=== PATIENT | male | born 2005 | race Caucasian/White ===

== ENCOUNTER 2025-03-29 16:13 | Inpatient (IN) ==
[2025-03-29 17:20] LABS: Hematocrit (blood only) 43.1 % (42.0-52.0); Hemoglobin 15.0 g/dL (14.0-18.0); Mean Corpuscular Hemoglobin 29.6 pg (25.0-34.0); Mean Corpuscular Volume 85.2 fL (80.0-100.0); Platelet Count 361 K/uL (130-400); RDW Standard Deviation 39.6 fL (36.4-46.3); Red Blood Count 5.06 M/uL (4.70-6.10); White Blood Count 30.65 K/ul (4.8-10.8)
[2025-03-29 17:34] LABS: Alanine Aminotransferase 15.0 U/L (7-52); Albumin Globulin Ratio 0.9 (0.9-2); Albumin Level 4.1 gm/dl (3.4-5.0); Alkaline Phosphatase 119.0 U/L (34-104); Anion Gap 12.0 (3-11); Bilirubin,Total 1.0 mg/dl (0.2-1.0); Blood Urea Nitrogen 12.0 mg/dl (6-23); Calcium 9.7 mg/dl (8.6-10.3); Carbon Dioxide 24.0 mmol/L (21-32); Chloride 95.0 mmol/L (98-107); Creatinine Clr Calc Pharmacy 92.8 ml/min; Globulin 4.7 gm/dl (2.5-4.0); Glucose 164.0 mg/dl (70-99(Fasting)); Potassium 3.9 mmol/L (3.5-5.1); Sodium 131.0 mmol/L (136-145); Total Protein 8.8 gm/dl (6.0-8.3)
[2025-03-29 17:39] LABS: Immature Granulocytes # (auto) 0.16 K/uL (0.01-0.20); Immature Granulocytes % (auto) 0.5 %
--- NOTE | 2025-03-29 17:41 | XRay Report ---
Clinical History: Cough and fever Technique: A frontal view of the chest was obtained Comparison is made to the prior examination dated 2024 Findings: There is increased left perihilar interstitial prominence and there is suspected left lower lobe infiltrate, concerning for pneumonia. The heart size is within normal limits. No pleural effusion or pneumothorax is seen. There is no definite pulmonary nodule. No fracture is noted. No foreign body is seen Impression: Suspected left lung pneumonia ACT 112: Positive. There are findings on this exam that require communication between the performing entity and the patient following Patient Test Result Information Act ([place] ACT 112) guidelines. Electronically signed by Markel Moore 03-29-2025 5:40 PM
[2025-03-29] MEDS: SODIUM CHLORIDE 0.9% 1,000 ML IV SCH ×2 (17:50→21:26)
[2025-03-29] MEDS: ACETAMINOPHEN 500 MG TAB PO STA (17:50)
[2025-03-29 17:56] LABS: Influenza A virus by PCR Negative (Neg); Influenza B virus by PCR Negative (Neg); SARS CoV2 RNA(COVID-19) Ceph NEGATIVE (Negative)
[2025-03-29] MEDS: cefTRIAXone SODIUM 2,000 MG/50 ML BAG IV STA (18:21)
[2025-03-29] MEDS: AZITHROMYCIN 250 MG TAB PO ONE (18:21)
[2025-03-29] MEDS: SODIUM CHLORIDE 0.9% 1,000 ML IV ONE (19:44)
--- NOTE | 2025-03-29 20:53 | History & Physical Report ---
Date of Service March 29, 2025 Assessment & Plan (1) Pneumonia: (2) Hyponatremia: Plan 19-year-old male no significant PMHx presenting for fever, sinus congestion, and vomiting. Evaluation significant for profound leukocytosis 30.65, CMP with electrolyte abnormalities of sodium 131, chloride 95, AG 12, and elevated alkaline phosphatase 119. Lactate initially was 2.8 then was 1.1 after receiving IVF. His COVID/flu/RSV is negative, however CXR does reveal suspected L lung pneumonia. Patient to be admitted for further management. #PNA ~ 4-5 days of URI symptoms + fatigue. Fever 104 Fahrenheit day of arrival, with coughing. No known sick contacts, but is a student at [employer]. No daily smoking, occasionally vapes. No history of asthma or respiratory conditions. 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 Imaging at admi ssion with suspected LL PNA, exam ? consistent with findings, faint adventitious breath sounds present LLL. No wheezing, vitals have stabilized from initial arrival, still with some tachycardia. Suspect labs 2/2 hemoconcentration. Will admit for further management. - CBC leukocytosis 30.65, neutrophils 26.72; BMP sodium 131, chloride 95, AG 12; lactate 2.8, 1.1 on repeat; procalcitonin 0.26; suspect labs hemoconcentration - CBC am - Blood cx pending - Sputum culture pending - COVID/flu/RSV negative - CXR suspected L lung pneumonia per read - EKG pending - O2 via NC to maintain >92%; No O2 at baseline - IS - DuoNebs felisha - Acetaminophen prn fever/pain - Ceftriaxone IV + Azithro received in ED - coverage for 24hr -- deferred further abx at time of admission, pending clinical course #Hyponatremia Likely secondary to decreased intake over the past week, also in setting of hyperglycemia. Hypovolemic clinically; asx. - Na 131, glucose 164; corrected 133 - BMP am - IVF NSS @ 100 mL/hr x 1 L Dispo: Admit, med/tele VTE Prophylaxis: SCDs This document was dictated utilizing [employer]. Please excuse any grammatical errors that may be secondary to use of this software. Admission and Anticipated Discharge Date Admission Date: 03/29/2025 History of Present Illness Chief Complaint: Flu-like symptoms Primary Care Provider: Tavares Mcgowan MD 19-year-old male no significant PMHx presenting for fever, sinus congestion, and vomiting. Patient reports that approximately 4 days [employer] he noted that he was feeling "really bad", stating that the fatigue checked and he was having upper respiratory symptoms. The following 2 days after this, he states that he was basically bedbound because of the fatigue and his symptoms, also with some vomiting. He was unable to attend class and had typically decreased appetite and oral intake over that time. On the day of arrival, he awoke with continued coughing and mucus production, and then found that he had a fever of 104.7 degrees Fahrenheit, so he decided to come to the hospital. He states that the cough has been ongoing, and he does have mucus production which is also noted every morning when he wakes up and has a runny nose. He is not short of breath. No dizziness, chest pain, or palpitations. He does note that he had the flu in February 2025, but felt that he recovered completely from that. He has no known sick contacts, however he is a student at [employer]. He does not smoke daily, occasionally will vape. 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 Patient states that he does feel better after receiving antibiotics and fluids through his IV, still with a deep cough and feeling fatigued. No history of asthma or additional respiratory conditions. No additional PMHx, no daily medications. No chest pain, palpitations, shortness of breath, abdominal pain, diarrhea/constipation, LUTS, weakness, syncope, or falls. ED evaluation reveals CBC with leukocytosis 30.65, neutrophils 26.72, H&H stable; CMP sodium 131, chloride 95, AG 12, BUN/creatinine ratio 9.9, glucose 164, alkaline phosphatase 119, protein 8.8, globulin 4.7; lactate 2.8, 1.1 on repeat after IVF; COVID/flu/RSV negative; CXR suspected L lung pneumonia.; Provided with 2L NSS, ceftriaxone 2 g IV, azithromycin 500 mg p.o., and acetaminophen 1 g po in ED. Please see Dr. Hernandez's attestation for adjustments/additions to treatment plan. Allergies Allergy/AdvReac Type Severity Reaction Status Date / Time No Known Allergies Allergy Verified 02/15/25 12:40 Home Medications Medication Instructions Recorded Confirmed Type albuterol sulfate 90 mcg/actuation 2 inh inhalation .q4-6h PRN 02/15/25 03/29/25 Rx aerosol inhaler (Ventolin HFA) shortness of breath or wheezing #6.7 grams methylphenidate HCl 54 mg 54 mg PO QAM 03/29/25 03/29/25 History tablet,extended release 24 hr azithromycin 250 mg tablet 250 mg PO DAILY #3 tabs 03/30/25 Rx cefdinir 300 mg capsule 300 mg PO BID #11 caps 03/30/25 Rx Past Med/Surg History Problem List (Updated 03/30/25 @ 11:04 by Yasmin Justice PA-C) Leukocytosis Sepsis (Acute) Hyponatremia Pneumonia (Acute) Social History Smoking Status: Never smoker Second Hand Exposure: No; Do You Dip or Chew Tobacco: No; Tobacco Cessation Education Requested by Patient: No Hx Alcohol Use: No Hx Substance Use: No Preferred Language: Yemeni Communication Ability: Effective Technology Teacher Required: No Beliefs That Will Affect Care: None Current Living Situation: Other Current Living Situation Comment: lives in apartment with roommates Other Information That Helps Us Care for You: No Feels Safe at Home: Yes Safety Concerns: Feels Safe At This Time Assistive Devices: None Review of Systems Review of Systems: All systems reviewed & are unremarkable except as noted in Subjective Physical Exam Physical Exam: General: No acute distress Skin: Warm and dry Head: Normocephalic, atraumatic Eyes: PERRL, conjunctivae clear, sclera non-icteric ENT: External ear and ear canal without swelling; nose atraumatic; good dentition, tongue normal appearance, pharynx normal Neck: Supple, no LAD Cardio: RRR, no M/G/R, S1 and S2 normal Resp: Coughing; no respiratory distress, LLL with faint crackles, no wheezing Abdomen: Soft, symmetric, nontender; No masses or hepatosplenomegaly; Bowel sounds normoactive MSK: No deformities; pulses palpable and equal; no edema. Neuro: Awake, alert; Sensation intact bilaterally; CN grossly intact Psych: Appropriate mood and affect; good judgement and insight. Results & Data Results & Data Vital Signs (Past 12 Hours) Vital Signs Temp Pulse Pulse Resp BP BP Pulse Ox 03/29/25 20:12 96 H 18 96 03/29/25 20:00 102/53 L 03/29/25 20:00 102/53 L 03/29/25 20:00 102/53 L 03/29/25 20:00 102/53 L 03/29/25 20:00 102/53 L 03/29/25 20:00 91 H 25 H 95 03/29/25 19:51 95 H 24 95 03/29/25 19:42 93 H 24 96 03/29/25 19:30 100 H 18 96 03/29/25 19:21 103 H 27 H 97 03/29/25 19:12 98 H 29 H 96 03/29/25 19:01 107/44 L 03/29/25 19:01 107/44 L 03/29/25 19:01 107/44 L 03/29/25 19:01 107/44 L 03/29/25 19:01 107/44 L 03/29/25 19:00 101 H 24 96 03/29/25 18:51 102 H 23 94 03/29/25 18:42 104 H 19 96 03/29/25 18:30 109 H 28 H 95 03/29/25 18:22 110 H 20 104/55 L 95 03/29/25 18:21 108 H 29 H 95 03/29/25 18:21 104/55 L 03/29/25 18:21 104/55 L 03/29/25 18:21 104/55 L 03/29/25 18:21 104/55 L 03/29/25 18:21 104/55 L 03/29/25 18:12 107 H 29 H 97 03/29/25 18:00 120 H 16 99 03/29/25 17:51 116 H 18 03/29/25 17:47 122 H 03/29/25 17:42 132 H 20 97 03/29/25 17:39 107/62 03/29/25 17:39 107/62 03/29/25 16:25 38.5 C H 124 H 18 100/52 L 96 03/29/25 16:14 84 18 101/62 98 O2 Del Method 03/29/25 20:12 03/29/25 20:00 03/29/25 20:00 03/29/25 20:00 03/29/25 20:00 03/29/25 20:00 03/29/25 20:00 03/29/25 19:51 03/29/25 19:42 03/29/25 19:30 03/29/25 19:21 03/29/25 19:12 03/29/25 19:01 03/29/25 19:01 03/29/25 19:01 03/29/25 19:01 03/29/25 19:01 03/29/25 19:00 03/29/25 18:51 03/29/25 18:42 03/29/25 18:30 03/29/25 18:22 Room Air 03/29/25 18:21 03/29/25 18:21 03/29/25 18:21 03/29/25 18:21 03/29/25 18:21 03/29/25 18:21 03/29/25 18:12 03/29/25 18:00 03/29/25 17:51 03/29/25 17:47 03/29/25 17:42 03/29/25 17:39 03/29/25 17:39 03/29/25 16:25 03/29/25 16:14 Room Air Laboratory Results 03/29/25 18:05 Aerobic Blood Culture - Pending Blood Anaerobic Blood Culture - Pending 03/29/25 17:44 Aerobic Blood Culture - Pending Blood Anaerobic Blood Culture - Pending 03/29/25 03/29/25 03/29/25 19:32 17:44 16:59 WBC 30.65 H* RBC 5.06 Hgb 15.0 Hct 43.1 MCV 85.2 MCH 29.6 MCHC 34.8 RDW Std Deviation 39.6 RDW Coeff of Stewart 12.9 Plt Count 361 MPV 9.3 L Immature Gran % (Auto) 0.5 Neut % (Auto) 87.2 Lymph % (Auto) 4.5 Hendricks % (Auto) 7.5 Eos % (Auto) 0.0 Baso % (Auto) 0.3 Neut # (Auto) 26.72 H Lymph # (Auto) 1.37 Hendricks # (Auto) 2.31 H Eos # (Auto) 0.00 Baso # (Auto) 0.09 Immature Gran # (Auto) 0.16 Sodium 131 L Potassium 3.9 Chloride 95 L Carbon Dioxide 24 Anion Gap 12 H BUN 12 Creatinine 1.21 Est Cr Clr Drug Dosing 92.8 eGFR 88.45 BUN/Creatinine Ratio 9.9 L Glucose 164 H Lactate 1.1 2.8 H* Calcium 9.7 Total Bilirubin 1.0 AST 18 ALT 15 Alkaline Phosphatase 119 H Total Protein 8.8 H Albumin 4.1 Globulin 4.7 H Albumin/Globulin Ratio 0.9 Procalcitonin 0.26 SARS-CoV-2 (PCR) NEGATIVE Monoscreen Negative Influenza Type A (PCR) Negative Influenza Type B (PCR) Negative RSV (RT-PCR) Negative Diagnostic Findings Chest X-Ray 03/29/25 16:28 Clinical History: Cough and fever Technique: A frontal view of the chest was obtained Comparison is made to the prior examination dated 2024 Findings: There is increased left perihilar interstitial prominence and there is suspected left lower lobe infiltrate, concerning for pneumonia. The heart size is within normal limits. No pleural effusion or pneumothorax is seen. There is no definite pulmonary nodule. No fracture is noted. No foreign body is seen Impression: Suspected left lung pneumonia ACT 112: Positive. There are findings on this exam that require communication between the performing entity and the patient following Patient Test Result Information Act ([place] ACT 112) guidelines. Electronically signed by Markel Moore 03-29-2025 5:40 PM Medications Administered 2L NSS Ceftriaxone 2 g IV Azithromycin 500 mg p.o. Acetaminophen 1 g p.o. Code Status & VTE Plan Code Status Full Supervising Physician Co-Signing Physician Notes Attending addendum: I have physically seen this patient, have supervised the MATIAS's activities, and agree with the H&P unless as otherwise noted. Assessment and Plan: The patient is a 19-year-old male with no significant past medical history, who presents to the emergency department for fever, sinus congestion, and vomiting. WBC 30.65, sodium 131, chloride 95, anion gap 12, ALP 119, lactate 2.8 follow-up 1.1. COVID/flu/RSV testing negative. Chest x-ray with left lung infiltrate. Community-acquired pneumonia left lung- Temperature to 104, intermittently productive cough, and fatigue. Presently student at [employer] treatment for latent TB 3 years ago COVID/flu/RSV negative Sputum culture and Gram stain Follow-up blood cultures Incentive spirometry DuoNebs every 4 hours while awake and every 2 hours when necessary. Acetaminophen 650 mg by mouth every 6 hours as needed for mild pain or fever Ceftriaxone IV and azithromycin IV given in the ED reassess in the a.m. Hyponatremia- Sodium 131, glucose 164 with corrected sodium 133 NSS at 100 mL/h x 1 L Repeat laboratories in a.m. PG Care Time/CCT Total # of Minutes Spent Total Time Spent with Patient: Total time spent is greater than 50% in coordination of care (as documented) at patient's floor/unit and/or counseling patient: Coding Level of Care Code 25670 INT INP/OBS CARE MIN Diagnoses Pneumonia J18.9 Hyponatremia E87.1
[2025-03-29] MEDS ORDERED: ALBUT/IPRATROP 3MG/0.5MG NEB 3 ML VIAL NEB PRN (23:47)
[2025-03-29] MEDS ORDERED: MELATONIN 3 MG TAB PO PRN (23:47)
[2025-03-29] MEDS ORDERED: POLYETHYLENE (MIRALAX) 17 GM PACK PO PRN (23:47)
[2025-03-29] MEDS ORDERED: ONDANSETRON INJ 2 MG/ML 2 ML VIAL IV PRN (23:47)
--- NOTE | 2025-03-30 00:12 | Emergency Department Note ---
History of Present Illness General Chief Complaint: Flu Like Symptoms Stated Complaint: FEVER 104.2, VOMITING, NAUSEA, COUGH, RUNNY NOSE Time Seen by Provider: 03/29/25 17:35 History of Present Illness Provider Complaint: + fever, + cough, + sore throat, + nasal congestion and + sinus pain Onset (ago): 3 day(s) Duration: + progressively worsening Maximum Pain Intensity: 5 Relieved By: + nothing Exacerbated By: + nothing Able to tolerate fluids by mouth: Yes Context: + sick contacts Associated symptoms: + myalgias, + headache and + nausea; no stiff neck, no shortness of breath, no abdominal pain, no vomiting, no diarrhea, no dysuria or no rash Home Medications Medication Instructions Recorded Confirmed Type albuterol sulfate 90 mcg/actuation 2 inh inhalation .q4-6h PRN 02/15/25 03/29/25 Rx aerosol inhaler (Ventolin HFA) shortness of breath or wheezing #6.7 grams methylphenidate HCl 54 mg 54 mg PO QAM 03/29/25 03/29/25 History tablet,extended release 24 hr Allergies Allergy/AdvReac Type Severity Reaction Status Date / Time No Known Allergies Allergy Verified 02/15/25 12:40 Past Med/Surg History Problem List (Updated 03/30/25 @ 00:18 by Coleman Marino MD) Sepsis (Acute) Hyponatremia Pneumonia (Acute) Social History Smoking Status: Never smoker Second Hand Exposure: No; Do You Dip or Chew Tobacco: No; Tobacco Cessation Education Requested by Patient: No Hx Alcohol Use: No Hx Substance Use: No Preferred Language: Mongolian Communication Ability: Effective 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 Beliefs That Will Affect Care: None Current Living Situation: Other Current Living Situation Comment: lives in apartment with roommates Other Information That Helps Us Care for You: No Feels Safe at Home: Yes Safety Concerns: Feels Safe At This Time Assistive Devices: None Physical Exam 2 Vital Signs: Vital Signs - 24 hr 03/29/25 16:14 03/29/25 16:25 03/29/25 17:39 Temperature 38.5 C H Temperature Source Oral Pulse Rate 124 H Pulse Rate [Right Finger] 84 Pulse Rate from Sp O2 Sensor Respiratory Rate 18 18 Respiratory Effort / Characteristics Non-Labored Sponta neous Respiratory Depth Normal Respiratory Patter n Regular Blood Pressure 100/52 L 107/62 Blood Pressure [Ri ght Arm] 101/62 Blood Pressure Monique n 68 83 Blood Pressure Monique n [Right Arm] 75 Pulse Oximetry 98 96 Oxygen Delivery Me thod Room Air Sepsis Recent Feve r Within 48 Hours No Sepsis New/Unexpla ined Change in Men richard Status N/A Sepsis Action Take n by Nursing No Action Required 03/29/25 17:39 03/29/25 17:42 03/29/25 17:47 Temperature Temperature Source Pulse Rate 132 H 122 H Pulse Rate [Right Finger] Pulse Rate from Sp O2 Sensor 130 H Respiratory Rate 20 Respiratory Effort / Characteristics Respiratory Depth Respiratory Patter n Blood Pressure 107/62 Blood Pressure [Ri ght Arm] Blood Pressure Monique n 83 Blood Pressure Monqiue n [Right Arm] Pulse Oximetry 97 Oxygen Delivery Me thod Sepsis Recent Feve r Within 48 Hours Sepsis New/Unexpla ined Change in Men richard Status Sepsis Action Take n by Nursing 03/29/25 17:51 03/29/25 18:00 03/29/25 18:12 Temperature Temperature Source Pulse Rate 116 H 120 H 107 H Pulse Rate [Right Finger] Pulse Rate from Sp O2 Sensor 116 H 106 H Respiratory Rate 18 16 29 H Respiratory Effort / Characteristics Respiratory Depth Respiratory Patter n Blood Pressure Blood Pressure [Ri ght Arm] Blood Pressure Monique n Blood Pressure Monique n [Right Arm] Pulse Oximetry 99 97 Oxygen Delivery Me thod Sepsis Recent Feve r Within 48 Hours Sepsis New/Unexpla ined Change in Men richard Status Sepsis Action Take n by Nursing 03/29/25 18:21 03/29/25 18:21 03/29/25 18:21 Temperature Temperature Source Pulse Rate Pulse Rate [Right Finger] Pulse Rate from Sp O2 Sensor Respiratory Rate Respiratory Effort / Characteristics Respiratory Depth Respiratory Patter n Blood Pressure 104/55 L 104/55 L 104/55 L Blood Pressure [Ri ght Arm] Blood Pressure Monique n 78 78 78 Blood Pressure Monique n [Right Arm] Pulse Oximetry Oxygen Delivery Me thod Sepsis Recent Feve r Within 48 Hours Sepsis New/Unexpla ined Change in Men richard Status Sepsis Action Take n by Nursing 03/29/25 18:21 03/29/25 18:21 03/29/25 18:21 Temperature Temperature Source Pulse Rate 108 H Pulse Rate [Right Finger] Pulse Rate from Sp O2 Sensor 110 H Respiratory Rate 29 H Respiratory Effort / Characteristics Respiratory Depth Respiratory Patter n Blood Pressure 104/55 L 104/55 L Blood Pressure [Ri ght Arm] Blood Pressure Monique n 78 78 Blood Pressure Monique n [Right Arm] Pulse Oximetry 95 Oxygen Delivery Me thod Sepsis Recent Feve r Within 48 Hours Sepsis New/Unexpla ined Change in Men richard Status Sepsis Action Take n by Nursing 03/29/25 18:22 03/29/25 18:30 03/29/25 18:42 Temperature Temperature Source Pulse Rate 109 H 104 H Pulse Rate [Right Finger] 110 H Pulse Rate from Sp O2 Sensor 109 H 104 H Respiratory Rate 20 28 H 19 Respiratory Effort / Characteristics Non-Labored Sponta neous Respiratory Depth Normal Respiratory Patter n Blood Pressure Blood Pressure [Ri ght Arm] 104/55 L Blood Pressure Monique n Blood Pressure Monique n [Right Arm] 71 Pulse Oximetry 95 95 96 Oxygen Delivery Me thod Room Air Sepsis Recent Feve r Within 48 Hours Sepsis New/Unexpla ined Change in Men richard Status Sepsis Action Take n by Nursing 03/29/25 18:51 03/29/25 19:00 03/29/25 19:01 Temperature Temperature Source Pulse Rate 102 H 101 H Pulse Rate [Right Finger] Pulse Rate from Sp O2 Sensor 102 H 101 H Respiratory Rate 23 24 Respiratory Effort / Characteristics Respiratory Depth Respiratory Patter n Blood Pressure 107/44 L Blood Pressure [Ri ght Arm] Blood Pressure Monique n 57 Blood Pressure Monique n [Right Arm] Pulse Oximetry 94 96 Oxygen Delivery Me thod Sepsis Recent Feve r Within 48 Hours Sepsis New/Unexpla ined Change in Men richard Status Sepsis Action Take n by Nursing 03/29/25 19:01 03/29/25 19:01 03/29/25 19:01 Temperature Temperature Source Pulse Rate Pulse Rate [Right Finger] Pulse Rate from Sp O2 Sensor Respiratory Rate Respiratory Effort / Characteristics Respiratory Depth Respiratory Patter n Blood Pressure 107/44 L 107/44 L 107/44 L Blood Pressure [Ri ght Arm] Blood Pressure Monique n 57 57 57 Blood Pressure Monique n [Right Arm] Pulse Oximetry Oxygen Delivery Me thod Sepsis Recent Feve r Within 48 Hours Sepsis New/Unexpla ined Change in Men richard Status Sepsis Action Take n by Nursing 03/29/25 19:01 03/29/25 19:12 03/29/25 19:21 Temperature Temperature Source Pulse Rate 98 H 103 H Pulse Rate [Right Finger] Pulse Rate from Sp O2 Sensor 98 H 103 H Respiratory Rate 29 H 27 H Respiratory Effort / Characteristics Respiratory Depth Respiratory Patter n Blood Pressure 107/44 L Blood Pressure [Ri ght Arm] Blood Pressure Monique n 57 Blood Pressure Monique n [Right Arm] Pulse Oximetry 96 97 Oxygen Delivery Me thod Sepsis Recent Feve r Within 48 Hours Sepsis New/Unexpla ined Change in Men richard Status Sepsis Action Take n by Nursing 03/29/25 19:30 03/29/25 19:42 03/29/25 19:51 Temperature Temperature Source Pulse Rate 100 H 93 H 95 H Pulse Rate [Right Finger] Pulse Rate from Sp O2 Sensor 99 H 93 H 94 H Respiratory Rate 18 24 24 Respiratory Effort / Characteristics Respiratory Depth Respiratory Patter n Blood Pressure Blood Pressure [Ri ght Arm] Blood Pressure Monique n Blood Pressure Monique n [Right Arm] Pulse Oximetry 96 96 95 Oxygen Delivery Me thod Sepsis Recent Feve r Within 48 Hours Sepsis New/Unexpla ined Change in Men richard Status Sepsis Action Take n by Nursing 03/29/25 20:00 03/29/25 20:00 03/29/25 20:00 Temperature Temperature Source Pulse Rate 91 H Pulse Rate [Right Finger] Pulse Rate from Sp O2 Sensor 91 H Respiratory Rate 25 H Respiratory Effort / Characteristics Respiratory Depth Respiratory Patter n Blood Pressure 102/53 L 102/53 L Blood Pressure [Ri ght Arm] Blood Pressure Monique n 67 67 Blood Pressure Monique n [Right Arm] Pulse Oximetry 95 Oxygen Delivery Me thod Sepsis Recent Feve r Within 48 Hours Sepsis New/Unexpla ined Change in Men richard Status Sepsis Action Take n by Nursing 03/29/25 20:00 03/29/25 20:00 03/29/25 20:00 Temperature Temperature Source Pulse Rate Pulse Rate [Right Finger] Pulse Rate from Sp O2 Sensor Respiratory Rate Respiratory Effort / Characteristics Respiratory Depth Respiratory Patter n Blood Pressure 102/53 L 102/53 L 102/53 L Blood Pressure [Ri ght Arm] Blood Pressure Monique n 67 67 67 Blood Pressure Monique n [Right Arm] Pulse Oximetry Oxygen Delivery Me thod Sepsis Recent Feve r Within 48 Hours Sepsis New/Unexpla ined Change in Men richard Status Sepsis Action Take n by Nursing 03/29/25 20:12 03/29/25 20:21 03/29/25 20:30 Temperature Temperature Source Pulse Rate 96 H 87 95 H Pulse Rate [Right Finger] Pulse Rate from Sp O2 Sensor 95 H 86 95 H Respiratory Rate 18 13 22 Respiratory Effort / Characteristics Respiratory Depth Respiratory Patter n Blood Pressure Blood Pressure [Ri ght Arm] Blood Pressure Monique n Blood Pressure Monique n [Right Arm] Pulse Oximetry 96 98 95 Oxygen Delivery Me thod Sepsis Recent Feve r Within 48 Hours Sepsis New/Unexpla ined Change in Men richard Status Sepsis Action Take n by Nursing 03/29/25 20:42 03/29/25 20:51 03/29/25 21:00 Temperature Temperature Source Pulse Rate 95 H 92 H Pulse Rate [Right Finger] Pulse Rate from Sp O2 Sensor 95 H Respiratory Rate 26 H 21 Respiratory Effort / Characteristics Respiratory Depth Respiratory Patter n Blood Pressure 108/58 L Blood Pressure [Ri ght Arm] Blood Pressure Monique n 80 Blood Pressure Monique n [Right Arm] Pulse Oximetry 95 Oxygen Delivery Me thod Sepsis Recent Feve r Within 48 Hours Sepsis New/Unexpla ined Change in Men richard Status Sepsis Action Take n by Nursing 03/29/25 21:00 03/29/25 21:00 03/29/25 21:00 Temperature Temperature Source Pulse Rate Pulse Rate [Right Finger] Pulse Rate from Sp O2 Sensor Respiratory Rate Respiratory Effort / Characteristics Respiratory Depth Respiratory Patter n Blood Pressure 108/58 L 108/58 L 108/58 L Blood Pressure [Ri ght Arm] Blood Pressure Monique n 80 80 80 Blood Pressure Monique n [Right Arm] Pulse Oximetry Oxygen Delivery Me thod Sepsis Recent Feve r Within 48 Hours Sepsis New/Unexpla ined Change in Men richard Status Sepsis Action Take n by Nursing 03/29/25 21:00 Temperature Temperature Source Pulse Rate 96 H Pulse Rate [Right Finger] Pulse Rate from Sp O2 Sensor 95 H Respiratory Rate 23 Respiratory Effort / Characteristics Respiratory Depth Respiratory Patter n Blood Pressure Blood Pressure [Ri ght Arm] Blood Pressure Monique n Blood Pressure Monique n [Right Arm] Pulse Oximetry 94 Oxygen Delivery Me thod Sepsis Recent Feve r Within 48 Hours Sepsis New/Unexpla ined Change in Men richard Status Sepsis Action Take n by Nursing Physical Exam: Physical Exam GENERAL: He is oriented to person, place, and time. He appears well-developed and well-nourished. He does not appear distressed. HENT: Exam performed. - Head: Normocephalic and atraumatic. - Right Ear: External ear normal. No mastoid erythema - Left Ear: External ear normal. No mastoid erythema - Mouth/Throat: The oropharynx is clear and moist. No trismus in the jaw. No dental abscesses or uvula swelling. No oropharyngeal exudate or tonsillar abscesses. EYES: Conjunctivae and EOM are normal. Pupils are equal, round, and reactive to light. Right eye exhibits no discharge. Left eye exhibits no discharge. No scleral icterus. NECK: Normal range of motion. Neck supple. No JVD present. No spinous process tenderness present. No carotid bruit present. No rigidity. No tracheal deviation and normal range of motion present. No Brudzinski's sign and no Kernig's sign noted. CV: Tachycardic rate, regular rhythm, normal heart sounds and intact distal pulses. There is no peripheral edema. Palpable radial pulses bue. PULM/CHEST: Effort normal and breath sounds normal. No respiratory distress. No stridor. He has no wheezes. He has no rales. - Chest Wall: He exhibits no tenderness. ABD: The abdomen is soft. Bowel sounds are normal. He has no distension. No mass is present. There is no tenderness. There is no rebound, no guarding, no Linares's sign and no tenderness at McBurney's point. Rovsig negative. MUSC/SKEL: Normal range of motion. There is no peripheral edema, tenderness or deformity. LYMPH: No cervical adenopathy. NEURO: He is alert and oriented to person, place, and time. He has normal strength. No cranial nerve deficit or sensory deficit. Coordination and gait normal. GCS eye subscore is 4. GCS verbal subscore is 5. GCS motor subscore is 6. Cerebellar tests wnl. SKIN: Skin is warm and dry. He is not diaphoretic. PSYCH: He has a normal mood and affect. Behavior is normal. Judgment and thought content normal. Course Course 1734: The patient was evaluated in room B10. A complete history and physical exam was performed Cardiac monitoring: An order was placed for continuous cardiac monitoring. The monitor shows a rate of 120 with sinus tachycardia rhythm interpreted by me Patient was seen during a time of extreme volume and extreme acuity. Nursing triage protocols were initiated labs and imaging was conducted by protocol in the triage area. Patient has left-sided pneumonia. Patient has a leukocytosis of 30.65. Patient be treated with Rocephin and azithromycin. Blood cultures procalcitonin and lactic acid also added for the patient. Flu RSV influenza swab pending. 2 L normal saline bolus started for the patient. 1930: Vital signs stable. On reassessment patient states he feels much better after antipyretic and IV fluids. Labs show lactate 2.8. [facility]. Administered Medications Sodium Chloride (Nss) 1,000 mls @ 100 mls/hr IV .Q10H GEOFF Stop: 04/01/25 21:14 Last Infusion: 03/29/25 23:49 Dose: 100 mls/hr Documented By: Admin: 03/29/25 21:26 Dose: 100 mls/hr Documented By: jeffrey Discontinued Medications Acetaminophen (Acetaminophen 500 Mg Tab) 1,000 mg PO NOW STA Stop: 03/29/25 17:47 Last Admin: 03/29/25 17:50 Dose: 1,000 mg Documented By: jeffrey Azithromycin (Azithromycin 250 Mg Tab) 500 mg PO NOW ONE Stop: 03/29/25 17:48 Last Admin: 03/29/25 18:21 Dose: 500 mg Documented By: TIFFANIE Sodium Chloride (Nss) 1,000 mls @ 999 mls/hr IV .Q1H1M GEOFF Stop: 03/29/25 19:45 Last Infusion: 03/29/25 19:15 Dose: Infused Documented By: jeffrey Admin: 03/29/25 18:20 Dose: 999 mls/hr Documented By: Infusion: 03/29/25 18:20 Dose: Infused Documented By: Admin: 03/29/25 17:50 Dose: 999 mls/hr Documented By: jeffrey Ceftriaxone Sodium (Rocephin) 2,000 mg in 50 mls @ 100 mls/hr IV NOW STA Stop: 03/29/25 18:16 Last Infusion: 03/29/25 19:15 Dose: Infused Documented By: jeffrey Admin: 03/29/25 18:21 Dose: 100 mls/hr Documented By: TIFFANIE Sodium Chloride (Nss) 1,000 mls @ 999 mls/hr IV .Q1H1M ONE Stop: 03/29/25 20:29 Last Infusion: 03/29/25 21:22 Dose: Infused Documented By: jeffrey Admin: 03/29/25 19:44 Dose: 999 mls/hr Documented By: TIFFANIE Medical Decision Making Laboratory Data Attestation: I reviewed the patient's lab results. 03/29/25 16:59 03/29/25 16:59 Lab Results 03/29/25 03/29/25 03/29/25 Range/Units 16:59 17:44 19:32 WBC 30.65 H* (4.8-10.8) K/ul RBC 5.06 (4.70-6.10) M/uL Hgb 15.0 (14.0-18.0) g/dL Hct 43.1 (42.0-52.0) % MCV 85.2 (80.0-100.0) fL MCH 29.6 (25.0-34.0) pg MCHC 34.8 (32.0-36.0) g/dL RDW Std Deviation 39.6 (36.4-46.3) fL RDW Coeff of Stewart 12.9 (11.5-14.5) % Plt Count 361 (130-400) K/uL MPV 9.3 L (9.4-12.4) fL Immature Gran % (Auto) 0.5 % Neut % (Auto) 87.2 % Lymph % (Auto) 4.5 % [place] % (Auto) 7.5 % Eos % (Auto) 0.0 % Baso % (Auto) 0.3 % Neut # (Auto) 26.72 H (1.40-6.50) K/uL Lymph # (Auto) 1.37 (1.20-3.40) K/uL [place] # (Auto) 2.31 H (0.11-0.59) K/uL Eos # (Auto) 0.00 (0.00-0.50) K/uL Baso # (Auto) 0.09 (0.00-0.20) K/uL Immature Gran # (Auto) 0.16 (0.01-0.20) K/uL Sodium 131 L (136-145) mmol/L Potassium 3.9 (3.5-5.1) mmol/L Chloride 95 L (98-107) mmol/L Carbon Dioxide 24 (21-32) mmol/L Anion Gap 12 H (3-11) BUN 12 (6-23) mg/dl Creatinine 1.21 (0.6-1.4) mg/dl Est Cr Clr Drug Dosing 92.8 ml/min eGFR 88.45 BUN/Creatinine Ratio 9.9 L (10-20) Glucose 164 H (70-99(Fasting)) mg/dl Lactate 2.8 H* 1.1 (0.4-2.0) mmol/L Calcium 9.7 (8.6-10.3) mg/dl Total Bilirubin 1.0 (0.2-1.0) mg/dl AST 18 (13-39) U/L ALT 15 (7-52) U/L Alkaline Phosphatase 119 H (34-104) U/L Total Protein 8.8 H (6.0-8.3) gm/dl Albumin 4.1 (3.4-5.0) gm/dl Globulin 4.7 H (2.5-4.0) gm/dl Albumin/Globulin Ratio 0.9 (0.9-2) Procalcitonin 0.26 (0-0.5) ng/ml SARS-CoV-2 (PCR) NEGATIVE (Negative) Monoscreen Negative (Negative) Influenza Type A (PCR) Negative (Neg) Influenza Type B (PCR) Negative (Neg) RSV (RT-PCR) Negative (Neg) Imaging Data Radiologist's Impression: Chest X-Ray 03/29/25 16:28 Clinical History: Cough and fever Technique: A frontal view of the chest was obtained Comparison is made to the prior examination dated 2024 Findings: There is increased left perihilar interstitial prominence and there is suspected left lower lobe infiltrate, concerning for pneumonia. The heart size is within normal limits. No pleural effusion or pneumothorax is seen. There is no definite pulmonary nodule. No fracture is noted. No foreign body is seen Impression: Suspected left lung pneumonia ACT 112: Positive. There are findings on this exam that require communication between the performing entity and the patient following Patient Test Result Information Act ([place] ACT 112) guidelines. Electronically signed by Markel Moore 03-29-2025 5:40 PM [facility] Narrative 1735: The patient was evaluated in room B10. A complete history and physical exam was performed Cardiac monitoring: An order was placed for continuous cardiac monitoring. The monitor shows a rate of 120 with sinus tachycardia rhythm interpreted by me Patient was seen during a time of extreme volume and extreme acuity. Nursing triage protocols were initiated labs and imaging was conducted by protocol in the triage area. Patient has left-sided pneumonia. Patient has a leukocytosis of 30.65. Patient be treated with Rocephin and azithromycin. Blood cultures procalcitonin and lactic acid also added for the patient. Flu RSV influenza swab pending. 2 L normal saline bolus started for the patient. 1930: Vital signs stable. On reassessment patient states he feels much better after antipyretic and IV fluids. Labs show lactate 2.8. [facility] Impression & Plan Pneumonia, Sepsis Discharge Plan Visit Data Chief Complaint: Flu Like Symptoms Stated Complaint: FEVER 104.2, VOMITING, NAUSEA, COUGH, RUNNY NOSE ED Provider: Coleman Marino Discharge Problem: Pneumonia, Sepsis Patient Disposition: Admitted As Inpatient Condition: Fair Discharge Instructions Interventions: ED Discharge Assessment Last Done: 03/29/25 23:16 Discharge Problem: Pneumonia Qualifiers: Pneumonia type: due to unspecified organism Laterality: left Lung location: u nspecified part of lung Qualified Code(s): J18.9 - Pneumonia, unspecified organism Sepsis Qualifiers: Sepsis type: sepsis due to unspecified organism Sepsis acute organ dysfunction status: unspecified Qualified Code(s): A41.9 - Sepsis, unspecified organism
[2025-03-30] MEDS: ACETAMINOPHEN 325 MG TAB PO PRN (02:34)
[2025-03-30 06:11] LABS: Hematocrit (blood only) 35.9 % (42.0-52.0); Hemoglobin 12.2 g/dL (14.0-18.0); Mean Corpuscular Hemoglobin 29.4 pg (25.0-34.0); Mean Corpuscular Volume 86.5 fL (80.0-100.0); Platelet Count 298 K/uL (130-400); RDW Standard Deviation 40.8 fL (36.4-46.3); Red Blood Count 4.15 M/uL (4.70-6.10); White Blood Count 28.38 K/ul (4.8-10.8)
[2025-03-30 06:29] LABS: Anion Gap 7.0 (3-11); Blood Urea Nitrogen 9.0 mg/dl (6-23); Calcium 8.7 mg/dl (8.6-10.3); Carbon Dioxide 22.0 mmol/L (21-32); Chloride 105.0 mmol/L (98-107); Creatinine Clr Calc Pharmacy 114.7 ml/min; Glucose 117.0 mg/dl (70-99(Fasting)); Potassium 4.3 mmol/L (3.5-5.1); Sodium 134.0 mmol/L (136-145)
[2025-03-30 07:55] VITALS: RESP 20; TEMP 97.7; O2SAT 96
--- NOTE | 2025-03-30 11:03 | Discharge Summary ---
Discharge Summary Date of Service March 30, 2025 Principal Dx & Hospital Course #1 = Principal Diagnosis (1) Pneumonia: (2) Hyponatremia: Plan 19-year-old male no significant PMHx presenting for fever, sinus congestion, and vomiting. Evaluation significant for profound leukocytosis 30.65, CMP with electrolyte abnormalities of sodium 131, chloride 95, AG 12, and elevated alkaline phosphatase 119. Lactate initially was 2.8 then was 1.1 after receiving IVF. His COVID/flu/RSV is negative, however CXR does reveal suspected L lung pneumonia. Patient to be admitted for further management. #PNA ~ 4-5 days of URI symptoms + fatigue. Fever 104 Fahrenheit day of arrival, with coughing. No known sick contacts, but is a student at [employer]. No daily smoking, occasionally vapes. No history of asthma or respiratory conditions. 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 Imaging at admission with suspected LL PNA, exam ? consistent with findings, faint adventitious breath sounds present LLL. No wheezing, vitals have stabilized from initial arrival, still with some tachycardia. Suspect labs 2/2 hemoconcentration. Will admit for further management. - CBC leukocytosis 30.65, neutrophils 26.72; BMP sodium 131, chloride 95, AG 12; lactate 2.8, 1.1 on repeat; procalcitonin 0.26; suspect labs hemoconcentration - Blood cx pending - Sputum culture pending - COVID/flu/RSV negative - CXR suspected L lung pneumonia per read - EKG pending - O2 via NC to maintain >92%; No O2 at baseline - IS - DuoNebs felisha - Acetaminophen prn fever/pain - Ceftriaxone IV + Azithro received in ED - WBC improved marginally down from 30.6 to 28.38. Symptoms overall improved. Afebrile and HD stable. Plan for dc home on course of Cefdinir and Azithromycin. Given a dose of each before discharge today. Plans for f/u with PCP within 1 week. Repeat CBC within 3-5 days. #Hyponatremia Likely secondary to decreased intake over the past week, also in setting of hyperglycemia. Hypovolemic clinically; asx. - Na 131, glucose 164; corrected 133 - BMP am - IVF NSS @ 100 mL/hr x 1 L Discharge home with close PCP follow up and repeat CBC. All questions answered. Mom at bedside. Pt and mother agrees with plan. Notes For Next Care Provider Needs repeat CBC to reassess leukocytosis. Admission HPI Per Admitting Provider 19-year-old male no significant PMHx presenting for fever, sinus congestion, and vomiting. 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 The following 2 days after this, he states that he was basically bedbound because of the fatigue and his symptoms, also with some vomiting. He was unable to attend class and had typically decreased appetite and oral intake over that time. On the day of arrival, he awoke with continued coughing and mucus production, and then found that he had a fever of 104.7 degrees Fahrenheit, so he decided to come to the hospital. He states that the cough has been ongoing, and he does have mucus production which is also noted every morning when he wakes up and has a runny nose. He is not short of breath. No dizziness, chest pain, or palpitations. He does note that he had the flu in February 2025, but felt that he recovered completely from that. He has no known sick contacts, however he is a student at [employer]. He does not smoke daily, occasionally will vape. 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 Patient states that he does feel better after receiving antibiotics and fluids through his IV, still with a deep cough and feeling fatigued. No history of asthma or additional respiratory conditions. No additional PMHx, no daily medications. No chest pain, palpitations, shortness of breath, abdominal pain, diarrhea/constipation, LUTS, weakness, syncope, or falls. ED evaluation reveals CBC with leukocytosis 30.65, neutrophils 26.72, H&H stable; CMP sodium 131, chloride 95, AG 12, BUN/creatinine ratio 9.9, glucose 164, alkaline phosphatase 119, protein 8.8, globulin 4.7; lactate 2.8, 1.1 on repeat after IVF; COVID/flu/RSV negative; CXR suspected L lung pneumonia.; Provided with 2L NSS, ceftriaxone 2 g IV, azithromycin 500 mg p.o., and acetaminophen 1 g po in ED. Please see Dr. Hernandez's attestation for adjustments/additions to treatment plan. Discharge Exam GENERAL: 19 yo Well-developed, well-nourished WM. NAD. LUNGS: Clear to auscultation bilaterally. No accessory muscle use. No W/R/R. CARDIOVASCULAR: Regular rate and rhythm. No M/G/R. No JVD. ABDOMEN: Soft, non-tender and non-distended. No palpable masses. Bowel sounds normoactive x 4 quad. EXTREMITIES: No edema. Non-tender. Peripheral pulses +2/4. NEUROLOGIC: A&O x3. No focal neurological deficits. CN II-XII grossly intact. PSYCHIATRIC: Cooperative. Appropriate mood and affect. SKIN: Warm, dry, intact. No rashes or lesions. Discharge Plan Discharge Items Patient Disposition: Home - Self-Care Reason For Visit: PNA Discharge Diagnosis: Pneumonia, Elevated white blood cell count Condition on Discharge: Good Activity: Resume your previous activity Non-emergency contact: Primary Care Provider Call non-emergency contact if: you have any medication questions and your symptoms worsen Follow-up/Referrals: Tavares Mcgowan MD [Primary Care Provider] - Diet: Regular Addtl Attending Provider Instructions: You were hospitalized for left lobe pneumonia with associated elevated white blood cell count and fever. You were started on antibiotics that were given to you through your IV as well as IV fluids. Your symptoms have improved and you are not longer running a fever, your heart rate has normalized, and your blood pressure is stable. Your white blood cell count has improved slightly but is still high. At this time, you will be continued on a course of antibiotics including Azithromycin and Cefdinir. You were given doses of both of these medications today 03/30 before your discharge. Your next dose of Cefdinir will be this evening, take it with food to avoid an upset stomach. You will need to complete 3 more days after today of the Azithromycin which is 250mg taken once daily. The Cefdinir you will have 5 more days after today, it is 300mg capsule taken twice a day (once in the morning and once in the evening). Complete antibiotics as directed, do not miss any doses. Due to your high white blood cell count, it is recommended that you have follow up labs done within 1 week. I suggest anytime between Monday 04/02 through Wednesday 04/04. This should be followed up by your primary care physician. Please ensure you schedule a follow up with your primary care provider within 1 week of discharge. In the event of new or worsening symptoms, notify your PCP promptly or return to the ER for evaluation. Pending Studies at Discharge: No Stand-Alone Forms: My [facility], Smoking Cessation Medications and DC Order Prescriptions: New cefdinir 300 mg capsule 300 mg PO BID Qty: 11 0RF Rx Instructions: next dose is due on 03/30/25 in evening, take with food azithromycin 250 mg tablet 250 mg PO DAILY Qty: 3 0RF Rx Instructions: Next dose due on 03/31/25 in AM Continued albuterol sulfate [Ventolin HFA] 90 mcg/actuation HFA aerosol inhaler 2 inh inhalation .q4-6h PRN (Reason: shortness of breath or wheezing) Qty: 6.7 0RF methylphenidate HCl 54 mg tablet extended release 24hr 54 mg PO QAM Discharge Orders: Discharge Order (Routine); Ordered 03/30/25 Ordered By: Yasmin Justice Admission Data Admit Date/Time: 03/29/25 21:04 Attending Provider: Hernandez Rangel Admit Provider: Fercho Hernandez Primary Care Provider: Tavares Mcgowan Other Providers: Fercho Hernandez Hospital Stay Data Consultations 03/29/25 19:30 ED Decision to Admit Stat Pending Results Patient Have Any Pending Studies at Discharge: No Discharge Instructions Given to Patient (Per Discharging Provider) You were hospitalized for left lobe pneumonia with associated elevated white blood cell count and fever. You were started on antibiotics that were given to you through your IV as well as IV fluids. Your symptoms have improved and you are not longer running a fever, your heart rate has normalized, and your blood pressure is stable. Your white blood cell count has improved slightly but is still high. At this time, you will be continued on a course of antibiotics including Azithromycin and Cefdinir. You were given doses of both of these medications today 03/30 before your discharge. Your next dose of Cefdinir will be this evening, take it with food to avoid an upset stomach. You will need to complete 3 more days after today of the Azithromycin which is 250mg taken once daily. The Cefdinir you will have 5 more days after today, it is 300mg capsule taken twice a day (once in the morning and once in the evening). Complete antibiotics as directed, do not miss any doses. Due to your high white blood cell count, it is recommended that you have follow up labs done within 1 week. I suggest anytime between Monday 04/02 through Wednesday 04/04. This should be followed up by your primary care physician. Please ensure you schedule a follow up with your primary care provider within 1 week of discharge. In the event of new or worsening symptoms, notify your PCP promptly or return to the ER for evaluation. Total Time Total Time Spent Total Time Spent (In Minutes): 35 minutes Coding Level of Care Code 77350 INP/OBS DISCH >30 MIN Diagnoses Pneumonia J18.9 Laterality: left Lung location: unspecified part of lung Pneumonia type: due to unspecified organism Hyponatremia E87.1
[2025-03-30 11:14] VITALS: BP 105/44; PULSE 83
[2025-03-30] MEDS: AZITHROMYCIN 250 MG TAB PO ONE (11:27)
[2025-03-30] MEDS: CEFDINIR 300 MG CAP PO STA (11:27)
--- NOTE | 2025-03-30 20:19 | Electrocardiogram Report ---
Test Reason : Blood Pressure : */* mmHG Vent. Rate : 92 BPM Atrial Rate : 92 BPM P-R Int : 144 ms QRS Dur : 96 ms QT Int : 340 ms P-R-T Axes : 57 92 79 degrees QTcB Int : 420 ms Normal sinus rhythm Rightward axis Incomplete right bundle branch block Borderline ECG No previous ECGs available Confirmed by Omid Tang ([id number]) on 03/30/2025 8:19:49 PM Referred By: REFERRED SELF Confirmed By: Omid Tang
--- NOTE | 2025-03-31 08:08 | Electrocardiogram Report ---
Test Reason : Blood Pressure : */* mmHG Vent. Rate : 80 BPM Atrial Rate : 80 BPM P-R Int : 128 ms QRS Dur : 96 ms QT Int : 350 ms P-R-T Axes : 22 94 51 degrees QTcB Int : 403 ms Normal sinus rhythm Rightward axis Borderline ECG When compared with ECG of 29-Mar-2025 21:34, (unconfirmed) No significant change was found Confirmed by Omid Tang ([id number]) on 03/31/2025 8:08:39 AM Referred By: REFERRED SELF Confirmed By: Omid Tang
== END 2025-03-30 12:32 | disposition home or self-care (01) | DRG 194 ==
LOC: ED 16:13 → 2S 21:04 → SUATTDRO 21:04 → 2S 23:16